=== PATIENT | female | born 1945 | race Caucasian/White ===

== ENCOUNTER 2018-09-02 06:32 | Day surgery (SDC) | payer MEDICARE, BC ==
[~2018-09-02] VITALS: Ht 162.6 cm; Wt 80.7 kg
--- NOTE | ~2018-09-02 | OP ---
PATIENT NAME: JIGNA ALANIS MEDICAL RECORD: [id number] :41 LOCATION:D.OPS ADMISSION DATE: SURGEON: MARNIE DEJESUS DPM DATE OF OPERATION: 09/02/2018 PREOPERATIVE DIAGNOSES: 1. Painful hardware, left first metatarsal. 2. Hammertoe, left second digit, PIPJ. POSTOPERATIVE DIAGNOSES: 1. Painful hardware, left first metatarsal. 2. Hammertoe, left second digit, PIPJ. PROCEDURES: 1. Left first metatarsal hardware removal. 2. Left second PIPJ fusion. ANESTHESIA: General with local infiltrate utilizing lidocaine and Marcaine plain, approximately 8 cc total around the surgical sites. HEMOSTASIS: Esmarch left ankle. PREOPERATIVE DETAILS: The patient was taken to the OR and placed on the operating table in a supine position. This was followed by induction of general anesthesia and infiltration of local anesthetic. The left extremity was then prepped and draped in usual aseptic technique followed by exsanguination of extremity and inflation of tourniquet. PROCEDURE #1: Painful hardware removal, left foot: A 15-blade was used to create a 1.5 cm linear incision overlying the screw in the first metatarsal. The screws location was verified utilizing C-arm. Dissection was carried down to the screw itself, which was freed. A screwdriver was then used to remove the screw. The wound was flushed and the skin was closed with 4-0 Rapide in a simple interrupted technique followed by Dermabond. PROCEDURE #2: Left second PIPJ fusion. A 15-blade was used to create 2 semi-elliptical incisions over the dorsal aspect of the second PIPJ of the left foot. The elliptical wedge was removed exposing the extensor tendon. The tendon was transected and the head of the proximal phalanx of the base of middle phalanx were then delivered. A sagittal saw was used to resect both. Utilizing the technique for the hammer graft. A drill hole was made in the proximal phalanx and the middle phalanx. The hammer graft was placed in the head of the proximal phalanx, seated properly into the base of the proximal phalanx. Then, the capital fragment was placed up over the top of the hammer graft and compressed giving excellent abutment of the middle phalanx and to the proximal phalanx. Excellent rigid fixation of the fusion site. The wound was flushed. The extensor longus tendon was repaired with 4-0 Rapide. The skin was then repaired with 4-0 Rapide in a subcuticular technique followed by Dermabond. Adaptic, 4 x 4 and Conform were used to dress the wound followed by Roberth. The Esmarch was removed. POSTOPERATIVE DETAILS: The patient tolerated the procedure well and left the OR with vital signs stable and vascular status at preoperative levels. The patient was transported to recovery per anesthesia in stable condition. OPERATIVE REPORT [id number] JIGNA ALANIS TRANSINT:[id number] Voice Confirmation ID: [id number] DOCUMENT ID: [id number] MARNIE DEJESUS DPM at 0831 CC: [id number] DICTATION DATE: 09/02/18910 COORDINATE MEASURING MACHINE OPERATOR: 09/02/18 1102 [facility] 09/02/18 [id number] [place] [address]
[~2018-09-02 06:32] MED LIST: BUPROPION XL150 MG PO; PROTONIX40 MG PO
[2018-09-02 07:01] LABS: HEMATOCRIT 41.8 % (36.0-48.0); HEMOGLOBIN 13.9 g/dL (12-16); MCHC 33.3 g/dL (31.0-37.0); MCV 96.1 fL (80.0-100.0); MEAN PLATELET VOLUME 10.9 fL (7.4-10.4); RBC 4.35 10x6/uL (4.00-5.40); RDW 13.6 % (11.5-14.5); WBC 5.3 10x3/uL (4.8-10.8)
[2018-09-02 07:35] VITALS: BP 146/76; Ht 162.6 cm; Wt 80.7 kg
== END 2018-09-02 11:13 | disposition home or self-care (01) ==
LOC: D.OPS 06:32 → D.PAN 08:00 → D.OPS 08:00
PROVIDERS: Anesthesiology
DX: T84.84XA Pain due to internal orthopedic prosthetic devices, implants and grafts, initial encounter (principal); M20.42 Other hammer toe(s) (acquired), left foot; Z01.812 Encounter for preprocedural laboratory examination